=== PATIENT | male | born 1955 | race Caucasian/White ===

== ENCOUNTER 2017-05-17 21:01 | Emergency (ER) | payer BC, SELFPAY ==
[2017-05-17] MEDS ORDERED: EPINEPHrine INJ 0.1 MG/ML 10 ML SYG ONE (21:10)
--- NOTE | 2017-05-17 21:31 | ED.PDOC ---
History of Present Illness - General Chief Complaint: General Stated Complaint: collapsed at home Time Seen by Provider: 05/17/17 21:16 Source: family - , EMS Exam Limitations: other - unresponsive ,no vital signs - History of Present Illness Initial Comments: Rahul Chowdhury . 61 y/o male diabetic brought by EMS after witnessed collapsed at home and on ems arrival cpr was performed,intraosseous line was placed and was intubated.According to ems cardiac technologist was showing asystole and was given 3 doses of epinephrine I/O but monitor continued to be in asystole.On his arrival here was noted to be paper white,cardiac technologist showed asysrole chest compression was continued,bagged,and was given 2 additional doses of epinephrine by I/O and continued to be asystole on cardiac technologist.Attempted to draw blood but no return flow on the vacutainer noted as well nurses tried to obtain iv access but veins are collapsed. stated that they had just finished making love. Timing/Duration: 1 hour Severity: severe Activities at Onset: other - see hpi Prior Chest Pain/Cardiac Workup: no prior cardiac workup Worsening Factors: nothing Associated Symptoms: other - see hpi Review of Systems - Review of Systems Unable to Obtain Due To: condition, intubated, other - in cardiorespiratory arrest Past Medical History (General) - Patient Medical History Hx Diabetes: Yes Family Medical History - Family History Father Family History: Unknown Physical Exam - Physical Exam General Appearance: Other - unresponsive ,intubated Eyes, Ears, Nose, Throat Exam: other - dilated pupils bilaterally;ET in place Neck: normal inspection Respiratory: other - absent respiration intubated Cardiovascular/Chest: other - asystole cardiac technologist Peripheral Pulses: radial,right: 0, radial,left: 0 Gastrointestinal/Abdominal: soft, distended Extremity: other - eschar formation both toes Neurologic: other - no response Skin Exam: pallor Progress - Progress Progress: 05/17/17 22:23 Pronounced at 2110 Hour.Despite adequate chest compressions,bagging,5 doses of epinephrine no cardiac rhythm noted/or pulses palpated -asystole on monitor.Resuscitation called off. Departure - Departure Clinical Impression: Cardiorespiratory arrest Time of Disposition: 22:28 Disposition: Condition: Serious Departure Forms: Patient Portal Self Enrollment
== END 2017-05-17 21:10 | disposition expired ==
LOC: ER 21:01
DX: I46.9 Cardiac arrest, cause unspecified (principal)